=== PATIENT | male | born 1990 | race African-American/Black ===

== ENCOUNTER 2021-06-01 11:56 | Emergency (ER) | payer SELFPAY ==
[2021-06-01] MEDS ORDERED: Ketorolac Tromethamine 30 MG/ML VIAL ONE (13:51)
== END 2021-06-01 14:01 | disposition home or self-care (01) ==
LOC: CSHERS 11:56
DX: M54.50 Low back pain, unspecified (principal)
CPT/HCPCS: 96372; 99283; J1885